=== PATIENT | male | born 1960 | race Caucasian/White ===

== ENCOUNTER → 2017-03-03 | Outpatient (CLI) | payer MEDICAID | LOC: SP 10:26 | PROVIDERS: ATTEND Orthopaedic Surgery Sports Medicine | DX: M79.662 Pain in left lower leg (principal) | CPT/HCPCS: 93971 ==

== ENCOUNTER 2017-08-03 09:20 | Emergency (ER) | payer MEDICAID, OTHER ==
[2017-08-03] MEDS ORDERED: ASPIRIN 81 MG TABLET, CHEWABLE PO ONE (09:31)
[2017-08-03] MEDS ORDERED: MORPHINE SULFATE 10 MG/ML INJ IV ONE (09:38)
--- NOTE | 2017-08-03 09:38 | ER Document Report ---
ED Medical Screen (RME) - General Chief Complaint: Chest Pain > 30 Stated Complaint: CHEST PAIN Time Seen by Provider: 08/03/17 09:32 Mode of Arrival: Wheelchair Information source: Patient TRAVEL OUTSIDE OF THE [place] IN LAST 30 DAYS: No - HPI Patient complains to provider of: Chest pain Notes: 08/03/17 09:36 Patient is a 56-year-old male presenting to the emergency room complaining of left-sided chest pain radiating to his neck and his left arm that started this morning, he did have some pain in his left lower rib cage after crawling up into an attic a few days ago but this is different this morning, he reports associated shortness of breath and diaphoresis when the pain started, patient has a history of hypertension, has also had bilateral knee replacement surgery most recent one being 4 months ago, no history of any known coronary artery disease - Related Data Allergies/Adverse Reactions: cephalexin [From Keflex] Allergy (Verified 08/03/17 09:31) Past Medical History Renal/ Medical History: Denies: Hx Peritoneal Dialysis Physical Exam - Vital signs Vitals: Temp Pulse Resp BP Pulse Ox 97.7 F 93 18 135/83 H 96 08/03/17 09:21 08/03/17 09:21 08/03/17 09:21 08/03/17 09:21 08/03/17 09:21 Course - Vital Signs Vital signs: Temp Pulse Resp BP Pulse Ox 97.7 F 93 18 135/83 H 96 08/03/17 09:21 08/03/17 09:21 08/03/17 09:21 08/03/17 09:21 08/03/17 09:21
[2017-08-03 10:09] LABS: ABSOLUTE BASOPHILS # (AUTO) 0.1 10^3/uL (0.0-0.2); ABSOLUTE EOSINOPHILS # (AUTO) 0.3 10^3/uL (0.0-0.6); ABSOLUTE LYMPHOCYTES (AUTO) 2.1 10^3/uL (0.5-4.7); ABSOLUTE NEUT (AUTO) 5.3 10^3/uL (1.7-8.2); BASOPHILS % (AUTO) 0.6 % (0-2); HEMATOCRIT 43.9 % (37.9-51.0); HEMOGLOBIN 15.7 g/dL (13.5-17.0); HGB HCT DIFFERENCE 3.2; LYMPHOCYTES % (AUTO) 24.3 % (13-45); MEAN CORPUSCULAR HEMOGLOBIN 33.5 pg (27.0-33.4); MEAN CORPUSCULAR HGB CONC 35.8 g/dL (32.0-36.0); MEAN CORPUSCULAR VOLUME 94 fl (80-97); MONOCYTES % (AUTO) 11.1 % (3-13); RED BLOOD COUNT 4.69 10^6/uL (4.35-5.55); RED CELL DISTRIBUTION WIDTH 14.1 % (11.5-14.0); WHITE BLOOD COUNT 8.6 10^3/uL (4.0-10.5)
--- NOTE | 2017-08-03 10:16 | RADIOLOGY REPORT (SQ) ---
EXAM DESCRIPTION: CHEST PA/LAT COMPLETED DATE/TIME: 08/03/2017 10:00 am REASON FOR STUDY: cp COMPARISON: None. EXAM PARAMETERS: NUMBER OF VIEWS: two views TECHNIQUE: Digital Frontal and Lateral radiographic views of the chest acquired. RADIATION DOSE: NA LIMITATIONS: none FINDINGS: LUNGS AND PLEURA: No opacities, masses or pneumothorax. No pleural effusion. MEDIASTINUM AND HILAR STRUCTURES: No masses or contour abnormalities. HEART AND VASCULAR STRUCTURES: Heart normal size. No evidence for failure. BONES: No acute findings. HARDWARE: None in the chest. OTHER: No other significant finding. IMPRESSION: NO SIGNIFICANT RADIOGRAPHIC FINDING IN THE CHEST. TECHNICAL DOCUMENTATION: JOB ID: [id number] [employer]- All Rights Reserved
[2017-08-03 10:26] LABS: ALANINE AMINOTRANSFERASE 38 U/L (21-72); ALBUMIN 4.5 g/dL (3.5-5.0); ALKALINE PHOSPHATASE 90 U/L (38-126); ANION GAP 12 (5-19); ASPARTATE AMINO TRANSFERASE 28 U/L (17-59); BILIRUBIN,DIRECT 0.5 mg/dL (0.0-0.4); BILIRUBIN,TOTAL 0.8 mg/dL (0.2-1.3); BLOOD UREA NITROGEN 5 mg/dL (7-20); CALCIUM 10.3 mg/dL (8.4-10.2); CARBON DIOXIDE 22 mmol/L (22-30); CHLORIDE 107 mmol/L (98-107); CREATINE KINASE 106 U/L (55-170); GLUCOSE 123 mg/dL (75-110); POTASSIUM 4.5 mmol/L (3.6-5.0); SODIUM 141.3 mmol/L (137-145); TOTAL PROTEIN 7.1 g/dL (6.3-8.2)
--- NOTE | 2017-08-03 10:32 | ER Document Report ---
ED General - General Chief Complaint: Chest Pain > 30 Stated Complaint: CHEST PAIN Time Seen by Provider: 08/03/17 09:32 Mode of Arrival: Wheelchair Information source: Patient Notes: This is a 56-year-old man with a history of hypertension, GERD, chronic pain, pleurisy, 1-2 pack per day smoking. Patient does report a lot of sinus discharge with a persistent cough since visiting [place] 2 weeks ago. Patient presented with left chest wall pain this morning which is been worse with deep inspiration and coughing. Patient states he was at a constitution party last night and he did "do some cocaine". He states that his chest wall hurts when he leans forward during the exam of his lungs. He denies any significant exertional chest pain or shortness of breath TRAVEL OUTSIDE OF THE [place] IN LAST 30 DAYS: No - HPI Onset: Last week Onset/Duration: Gradual Quality of pain: Dull Severity: Moderate Pain Level: 2 Associated symptoms: Productive cough. denies: Fever Exacerbated by: Movement Relieved by: Denies Similar symptoms previously: Yes Recently seen / treated by doctor: No - Related Data Allergies/Adverse Reactions: cephalexin [From Keflex] Allergy (Verified 08/03/17 09:31) Past Medical History - General Information source: Patient - Social History Smoking Status: Current Every Day Smoker Cigarette use (# per day): Yes - 1-2 packs per day Chew tobacco use (# tins/day): No Frequency of alcohol use: None Drug Abuse: Marijuana Lives with: Family Family History: Reviewed & Not Pertinent Patient has suicidal ideation: No Patient has homicidal ideation: No - Past Medical History Cardiac Medical History: Reports: Hx Hypertension Renal/ Medical History: Denies: Hx Peritoneal Dialysis GI Medical History: Reports: Hx Gastroesophageal Reflux Disease Musculoskeltal Medical History: Reports Hx Arthritis - gout Past Surgical History: Reports: Hx Orthopedic Surgery - chronic pain - Immunizations Hx Diphtheria, Pertussis, Tetanus Vaccination: Yes Review of Systems - Review of Systems Constitutional: denies: Chills, Fever EENT: No symptoms reported Cardiovascular: See HPI Respiratory: See HPI Gastrointestinal: No symptoms reported Genitourinary: No symptoms reported Male Genitourinary: No symptoms reported Musculoskeletal: No symptoms reported Skin: No symptoms reported Hematologic/Lymphatic: No symptoms reported Neurological/Psychological: No symptoms reported Physical Exam - Vital signs Vitals: Temp Pulse Resp BP Pulse Ox 97.7 F 93 18 135/83 H 96 08/03/17 09:21 08/03/17 09:21 08/03/17 09:21 08/03/17 09:21 08/03/17 09:21 Notes: Physical exam: GENERAL: 56-year-old man, alert and oriented 3, no acute distress HEAD: Atraumatic, normocephalic. EYES: Pupils equal round and reactive to light, extraocular movements intact, sclera anicteric, conjunctiva are normal. ENT: TMs normal, nares patent, oropharynx clear without exudates. Moist mucous membranes. NECK: Normal range of motion, supple without obvious mass or JVD. LUNGS: Breath sounds clear to auscultation bilaterally and equal. No wheezes rales or rhonchi. HEART: Regular rate and rhythm without murmurs, rubs or gallops. ABDOMEN: Soft, normoactive bowel sounds. No tenderness to palpation. No guarding, no rebound. No masses appreciated. EXTREMITIES: Normal range of motion, no pitting or edema. No clubbing or cyanosis. NEUROLOGICAL: Cranial nerves II through XII grossly intact. Normal speech, moving all extremities. PSYCH: Normal mood, normal affect. SKIN: Warm, Dry, normal turgor, no rashes or lesions noted. Course - Re-evaluation Re-evalutation: 08/03/17 14:34 Note: Shortly after I evaluated the patient, he ripped out his IV and left the emergency room. I was at the time with a critical patient intubating that patient and could not make it to the room. This reaction was somewhat surprising, considering that I had a very pleasant conversation with this gentleman shortly before this outburst. In any event, the patient had left AMA. The patient's EKG was sinus rhythm and showed no acute ST changes. I did check his labs in the were satisfactory. His chest x-ray showed no acute infiltrates or effusions. 08/03/17 14:37 - Vital Signs Vital signs: Temp Pulse Resp BP Pulse Ox 97.7 F 93 22 H 143/92 H 97 08/03/17 09:21 10 09:21 08/03/17 10:18 08/03/17 11:01 08/03/17 11:01 - Laboratory Result Diagrams: 08/03/17 09:50 10/01/17 09:50 Laboratory results interpreted by me: 08/03/17 08/03/17 09:50 09:50 MCH 33.5 H RDW 14.1 H Plt Count 462 H BUN 5 L Glucose 123 H Calcium 10.3 H Direct Bilirubin 0.5 H - Diagnostic Test Radiology reviewed: Image reviewed, Reports reviewed - Chest x-ray shows no infiltrates or effusions - EKG Interpretation by Me Rate: Normal Rhythm: NSR - EKG shows normal sinus rhythm with a ventricular rate of 87, no acute ST-T wave changes Discharge - Discharge Clinical Impression: chest wall pain Condition: Stable Disposition: AGAINST MEDICAL ADVICE
[2017-08-03 10:38] LABS: CREATINE KINASE MB 1.01 ng/mL (<4.55)
[2017-08-03 10:39] LABS: TROPONIN I < 0.012 ng/mL
[2017-08-03 11:15] VITALS: BP 143/92
--- NOTE | 2017-08-03 13:05 | EKG REPORT ---
SEVERITY:- ABNORMAL ECG - SINUS RHYTHM INFERIOR INFARCT, OLD : Confirmed by: Dandre Ambriz 03-Aug-2017 13:04:12
== END 2017-08-03 11:15 | disposition left against medical advice (07) ==
LOC: ER 09:20
DX: R07.89 Other chest pain (principal); I10 Essential (primary) hypertension; K21.9 Gastro-esophageal reflux disease without esophagitis; G89.29 Other chronic pain; F17.210 Nicotine dependence, cigarettes, uncomplicated; R05 Cough
CPT/HCPCS: 93005; 99285; 96374; 36415; 82553; 82550; 85025; 80053; 84484; 71020; 93010; J2270

== ENCOUNTER 2020-09-05 06:35 | Day surgery (SDC) | payer OTHER ==
[~2020-09-05 06:35] MED LIST: KETOROLAC TROMETHAMINE 0.45% 4 DROP/0.4 ML DROPERETTE OS PRN
[2020-09-05] MEDS ORDERED: CHONDR SU A NA/HYALUR INTRAOC KIT (SURGICARE) ONE (06:49)
[2020-09-05] MEDS ORDERED: EPINEPHRINE INJ/PF 1 MG/1 ML AMPULE ONE (06:49)
[2020-09-05] MEDS ORDERED: LIDOCAINE 1%/PHENYLEPHRINE 1.5% 1 ML VIAL ONE (06:49)
[2020-09-05] MEDS ORDERED: MIDAZOLAM 2 MG/2 ML INJ ONE (07:01)
[2020-09-05] MEDS ORDERED: FENTANYL CITRATE INJ/PF 100 MCG/2 ML AMPUL ONE (07:01)
[2020-09-05] MEDS ORDERED: ONDANSETRON HCL INJ/PF 4 MG/2 ML SDV ONE (07:01)
[2020-09-05] MEDS: TETRACAINE HCL 0.5% OPH SOLN 4 ML OS PRN ×3 (07:03→07:39)
[2020-09-05] MEDS: CYCLOPENTOLATE 0.2%/PHENYLEPHRINE 1% OPH SOLN 2 ML OS PRN ×3 (07:03→07:14)
[2020-09-05] MEDS: BESIFLOXACIN HCL 0.6% OPH SUSP 5 ML BOTTLE OS PRN ×4 (07:04→07:59)
[2020-09-05] MEDS: TROPICAMIDE 1% OPH SOLN 15 ML OS PRN ×3 (07:04→07:14)
[2020-09-05] MEDS: PREDNISOLONE ACETATE 1% OPH SUSP 5 ML OS PRN ×2 (07:52→07:59)
[2020-09-05] MEDS: DORZOLAMIDE HCL 2%/TIMOLOL MALEAT 0.5% OPH SOLN 10 ML OS PRN ×2 (07:52→07:59)
--- NOTE | 2020-09-05 13:47 | Operative Report ---
Operative Report-[facility] Operative Report: DATE OF SURGERY: 09/05/20 PREOPERATIVE DIAGNOSIS: Cataracts, left eye POSTOPERATIVE DIAGNOSIS: Cataract, left eye OPERATION: Cataract extraction with insertion of an IOL of the left eye. Intraocular Lens Model: [20.0 diopter SN 60 WF] Underwent surgery for difficulty seeing at night secondary to glare from headlights SURGEON: Jose Holman MD ANESTHESIA: Topical PROCEDURE: After obtaining appropriate consent, the patient's left eye was prepped and draped in a sterile fashion as well as the surgeon in the sterile manner and cataract surgery was started. First a paracentesis blade was used to make a side-port incision. Viscoelastic was used to inflate the anterior chamber. Next a 2.4 mm incision was made with a 2.4 mm blade, clear corneal temporarily. A continuous capsulorrhexis was made using a cystotome and Utrata forceps. Following this hydrodissection was carried out to make the lens fully loose and mobile and it was rotated 90 degrees. Following this, a divide and conquer technique was used to phacoemulsify the lens. The remaining cortex was removed with an irrigation/aspiration. Provisc was instilled into the capsular bag to inflate the bag.The intraocular lens was placed. The remaining viscoelastic material was removed with irrigation/aspiration. Following this, the incision was found to be watertight. Besivance and Cosopt was instilled into the eye and a protective shield was placed over the eye. The patient was returned to the postoperative recovery in a stable condition.
== END 2020-09-05 08:36 | disposition home or self-care (01) ==
LOC: SC 06:35
PROVIDERS: ATTEND Internal Medicine
DX: H25.12 Age-related nuclear cataract, left eye (principal); H43.813 Vitreous degeneration, bilateral; I10 Essential (primary) hypertension; F32.9 Major depressive disorder, single episode, unspecified; K21.9 Gastro-esophageal reflux disease without esophagitis; M19.90 Unspecified osteoarthritis, unspecified site; E78.00 Pure hypercholesterolemia, unspecified; F17.210 Nicotine dependence, cigarettes, uncomplicated; G43.909 Migraine, unspecified, not intractable, without status migrainosus
CPT/HCPCS: 66984; V2632; J2250; J3490 ×2; J0171; J3010; J2405